=== PATIENT | male | born 1935 | race Caucasian/White ===

== ENCOUNTER 2016-07-09 04:02 | Inpatient (IN) | payer MEDICARE, BC ==
[2016-07-04 13:57] LABS: HEMATOCRIT 44.9 % (40.0-51.0); HEMOGLOBIN 15.2 g/dL (13.6-17.8)
[2016-07-04 14:08] LABS: BUN (BLOOD UREA NITROGEN) 17 MG/DL (6-23); CALCIUM, SERUM 9.1 MG/DL (8.5-10.4); CHLORIDE, SERUM 105 MMOL/L (96-112); CO2 (CARBON DIOXIDE) 27 MMOL/L (24-34); CREATININE 1.12 MG/DL (0.70-1.30); GFR AFRICAN AMERICAN 72 ML/MIN (>=60); GFR NON AFRICAN AMERICAN 62 ML/MIN (>=60); GLUCOSE, SERUM 103 MG/DL (60-99); POTASSIUM, SERUM 4.1 MMOL/L (3.5-5.3); SODIUM, SERUM 140 MMOL/L (135-148)
--- NOTE | ~2016-07-09 | PREOPHP ---
PreOp History and Physical [facility] [address] [place]. [address] NAME: RENÉE GOMEZ : 37 STATUS : ADM IN PAT#: [id number] AGE: 81 ADM/REG DATE : 07/09/16 MR#: [id number] REPORT SERV DATE: 07/09/16 DICTATED BY: UMESH HEADLEY DATE: 07/09/16 REPORT STATUS : Draft TRANSCRIBED BY: MODL DATE: 07/09/16 CHIEF COMPLAINT: Back pain, right hip and leg pain. HISTORY OF PRESENT ILLNESS: This is an 81-year-old male with a significant history of back pain, right hip and leg pain. It has been unresponsive to care. His symptoms are much worse standing or walking, better when sitting. He has had an extensive workup and is found to have neurologic deficit on exam. He is also found to have spinal stenosis at L3-4 which is mostly central canal and lateral recess. There is rather marked spinal stenosis with disk herniation and nerve impingement on the right at L4-5. A complete facetectomy will be required in order to decompress the exiting nerve root at L4. Also, with a complete facetectomy and severe stenosis at L4-5, restabilization will be necessary. This will be done through transforaminal diskectomy, interbody cage insertion, posterolateral interbody fusion, as well as posterior percutaneous instrumentation. At L3-4, since there is no facetectomy and no iatrogenic instability, only a simple decompression will be carried out. Prior to surgery, I have gone over the risks, benefits, alternatives, and expectations that have been completed. The patient and the family understand there are significant risks at his age with the medical problems he has had, everything up to and including paralysis and . They feel the pain is so intense and so severe that he is willing to do anything for any attempted relief. It should also be noted the patient does have grade 1 spondylolisthesis at L4-5, associated with severe stenosis. Today, in the preop holding, the patient was identified. Once again, the patient voiced understanding the risks, willingness to accept those, and requested to proceed. Please also note due to the complexity of surgery and the need to identify correct level of surgery intraoperatively as well as desire to carry out the safest and most precise dissection, we feel intraoperative navigation is mandatory. PAST MEDICAL HISTORY: Includes coronary artery disease and he did have an VT at age 41. He has had cardiac stents. He has hypercholesterolemia, CVA, and TIA. He has had osteoarthritis as well. PAST SURGICAL HISTORY: [place] tooth extraction, cholecystectomy, skin biopsy, cataract extraction, lens implant, and coronary artery bypass graft surgery. CURRENT MEDICATIONS: Amlodipine, Zetia, Neurontin, losartan, primidone, propranolol, simvastatin, and triamcinolone. ALLERGIES: CODEINE AND LATEX. SOCIAL HISTORY: He is . Right-hand dominant. Former smoker. Used about 40 pack- years tobacco. Rarely uses alcohol. FAMILY HISTORY: His father is . Mother also , hypertensive crisis. PHYSICAL EXAMINATION: VITAL SIGNS: 5 feet 11 inches, 213 pounds, BMI is 29.7. PreOp History and Physical [address] [address] NAME: RENÉE GOMEZ : 37 STATUS : ADM IN [facility]#: [id number] AGE: 81 ADM/REG DATE : 07/09/16 MR#: [id number] REPORT SERV DATE: 07/09/16 DICTATED BY: UMESH HEADLEY DATE: 07/09/16 REPORT STATUS : Draft TRANSCRIBED BY: HOMERO DATE: 07/09/16 GENERAL: Alert, cooperative, well oriented. Asked to have assistance to ambulate because the pain is so intractable. HEENT: Pupils are equal and reactive to light. Extraocular muscles are intact. Oral exam is grossly normal. LUNGS: Clear to auscultation. HEART: Rate is regular and rhythmic. ABDOMEN: Soft with good bowel sounds. No peritoneal signs are noted. MUSCULOSKELETAL: The spine itself has no gross deformities. He has no leg length discrepancy. No pelvic obliquely is noted. He has limited range of motion. He cannot heel walk or toe walk. Patella and Achilles reflexes are completely absent. I could not detect true motor strength weakness. I did a straight leg raising sign which caused some pain on the right, but I did not do a femoral nerve stretch test. Toes are downgoing. No ankle clonus is found. No evidence of myelopathy noted. Orthopedically, he has no pain with moving hips, knees, or ankles. There are pulses but they are weak in both lower extremities. Capillary refill is 4 to 4.5 seconds. No abnormal skin lesions are found. No adenopathy palpated. ASSESSMENT AND RECOMMENDATIONS: As listed above. SH/MODL Umesh Headley D.O. / [id number] CC: Umesh Headley D.O.
--- NOTE | ~2016-07-09 | DS ---
Discharge Summary [facility] [address] [place]. [address] NAME: RENÉE GOMEZ : 37 STATUS : DIS IN PAT#: [id number] AGE: 81 ADM/REG DATE : 07/09/16 MR#: [id number] REPORT SERV DATE: 07/20/16 DICTATED BY: UMESH HEADLEY DATE: 07/20/16 REPORT STATUS : Draft TRANSCRIBED BY: MODAbhi DATE: 07/20/16 Data Collection from hospitalization DISCHARGE DIAGNOSES: 1. Severe foraminal spinal stenosis with grade 1 spondylolisthesis at L4-5 on the right. 2. Spinal stenosis right L3-4. 3. Hypertension. 4. History of stroke. 5. Coronary artery disease. 6. History of myocardial infarction. 7. Peripheral vascular disease. 8. History of carotid stenosis. 9. Osteoarthritis. 10.Hypercholesterolemia. CONSULTATIONS: None. PROCEDURES PERFORMED: Microscopic and navigation-assisted surgery; right L4-5 hemilaminectomy, foraminotomy, facetectomy, transforaminal diskectomy, anterior interbody cage insertion, posterior lateral interbody fusion with local bone graft and allograft; posterior percutaneous Voyager instrumentation at L4-5; right L3-4 hemilaminotomy, foraminotomy, and partial facetectomy on 07/09/2016. PATHOLOGY: Spine, lumbar bone, and tissue - fibrocartilage consistent with intervertebral disk, calcium pyrophosphate deposition in disk material, benign bone fragments with degenerative changes. MEDICATIONS: Tylenol 1000 mg every four hours as needed, Norvasc 10 mg at bedtime, aspirin 81 mg twice a day, Plavix 75 mg daily, Zetia 10 mg at bedtime, Dilaudid 4 mg every four hours as needed, Hyzaar one tablet daily, Robaxin 500 mg every eight hours, Mysoline 100 mg twice a day, Inderal LA 120 mg daily, Zocor 40 mg at bedtime, and PreserVision one capsule twice a day. CONDITION AT DISCHARGE: Stable. DISPOSITION: The patient was discharged home to be followed by home health care on a regular diet with activities as instructed. He would follow up with Anais Barber on 07/24/2016. HOSPITAL COURSE: This is an 81-year-old man who has a significant history of back, right hip, and leg pain. This had been unresponsive to care. He has had an extensive workup and was found to have neurologic deficits on exam. He was also found to have spinal stenosis at L3-4, which was mostly central canal and lateral recess. There was rather marked spinal stenosis with disk herniation and nerve impingement on the right at L4-5. Treatment options were discussed and it was elected to proceed with surgical intervention. He was admitted to the hospital at this time for further evaluation and treatment. Upon admission, he was taken to the operating room where he underwent the above-mentioned procedure. He tolerated this well, and there were no complications. On postop day #1, he Discharge Summary [facility] [address] [facility] [address] [facility]. [address] NAME: RENÉE GOMEZ : 37 STATUS : DIS IN PAT#: [id number] AGE: 81 ADM/REG DATE : 07/09/16 MR#: [id number] REPORT SERV DATE: 07/20/16 DICTATED BY: UMESH HEADLEY DATE: 07/20/16 REPORT STATUS : Draft TRANSCRIBED BY: HOMERO DATE: 07/20/16 was doing well. He had no right leg pain. He had normal distal pulses. He was evaluated by Physical Therapy. On postop day #2, he continued to do well. He was transferring okay. A laxative was given. Discharge planning was performed. On 07/12/2016, he was ambulating in the lin. Discharge instructions were given. Due to his improved and stable condition, he was discharged home to be followed by home health care with the above-stated instructions. Information collected by: Aidee Cody I submit the above information as my discharge summary. KITTY/HOMERO Umesh Headley D.O. / [id number] CC: Sally Fermin M.D.
--- NOTE | ~2016-07-09 | OP ---
Record Of Operation [facility] [address] [place]. [address] NAME: RENÉE GOMEZ : 37 STATUS : ADM IN PAT#: [id number] AGE: 81 ADM/REG DATE : 07/09/16 MR#: [id number] REPORT SERV DATE: 07/09/16 DICTATED BY: UMESH HEADLEY DATE: 07/09/16 REPORT STATUS : Draft TRANSCRIBED BY: MODL DATE: 07/09/16 DATE OF PROCEDURE: PREOPERATIVE DIAGNOSES: 1. Severe foraminal spinal stenosis with a grade 1 spondylolisthesis at L4-5 on the right. 2. Spinal stenosis at right L3-4. POSTOPERATIVE DIAGNOSES: 1. Severe foraminal spinal stenosis with a grade 1 spondylolisthesis at L4-5 on the right. 2. Spinal stenosis at right L3-4. PROCEDURES: 1. Microscopic and navigation-assisted surgery. 2. Right L4-5 hemilaminectomy, foraminotomy, facetectomy, transforaminal diskectomy, anterior interbody cage insertion, posterior lateral interbody fusion with local bone graft and allograft. 3. Posterior percutaneous Voyager instrumentation at L4-5. 4. Right L3-4 hemilaminotomy, foraminotomy, partial facetectomy. SURGEON: Umesh Headley D.O. TO[employer] PREVENTION HEALTH EDUCATOR: Willie Forbes. ANESTHESIA: General. BLOOD LOSS: 50 mL. INDICATION FOR SURGERY: Risks were explained. They are listed in the last office note as well as history and physical. See that for detail. DESCRIPTION OF PROCEDURE: Antibiotic prophylaxis was given. Neurophysiology monitoring leads were inserted. The patient was brought into the operative suite and general anesthetic including endotracheal intubation was administered. Hussein catheter was inserted with sterile technique. The patient was placed prone on a Marky spine frame. Bony prominences were carefully padded. Thoracolumbar spine scrubbed with Hibiclens solution. DuraPrep was painted. Sterile drapes applied. A small stab wound was carried out over the left posterior superior iliac spine. A percutaneous pin with navigational frame attached was inserted in the PSIS. Intraoperative CT scan with the O-arm was obtained. CT information used to register the navigational system. With navigational assistance, I identified the L3-4 and L4-5 level. A small 2 cm skin incision was carried out in the midline at L3-4. A blunt navigated probe placed through the fascia and muscle and docked over the interlaminar space. Muscle dilators were inserted followed by placement of a tubular retractor attached to an arm mount on the table. The Record Of Operation [facility] [address] [place]. [address] NAME: RENÉE GOMEZ : 37 STATUS : ADM IN PAT#: [id number] AGE: 81 ADM/REG DATE : 07/09/16 MR#: [id number] REPORT SERV DATE: 07/09/16 DICTATED BY: UMESH HEADLEY DATE: 07/09/16 REPORT STATUS : Draft TRANSCRIBED BY: HOMERO DATE: 07/09/16 microscope was sterilely draped and used throughout the remainder of the procedure. With navigational assistance, I identified the amount of lamina of L3 needed to remove in order to reach the cephalad boundary of the disk space and the insertion of the ligamentum flavum. I removed 60% to 70% ligamentum of the lamina of L3, 25% of medial facet joint of L3-4, and the lateral ligamentum flavum was elevated and removed with Kerrison rongeurs. This nicely decompressed the lateral recess and the central canal and appeared very nicely. The disk space was inspected. No herniations were found. The wound was irrigated. The retractor was removed. Next, I identified L4-5, and on the right side, just lateral to the facet joint, a 2.5 cm skin incision was carried out. A blunt navigated probe placed through the fascia and muscle and docked over the facet joint. Muscle dilators were inserted followed by placement of a tubular retractor attached to an arm mount on the table. The microscope was sterilely draped and used throughout the remainder of the procedure as well. With the navigational assistance, once again, I identified the top of the pedicle of L5 and the inferior pedicle of L4. I then worked from [id number] removed and using a combination of a cutting horace, a john horace, and 2 as well as 3 mm Kerrison rongeurs, I removed the superior articular process of L5 down to the top of the pedicle. I removed the inferior articular process of L4, the lamina of L4, and the pars interarticularis of L4. The ligamentum flavum was markedly hypertrophied and it was removed, and this decompressed the central canal as well as the lateral recess. The foramen was extremely stenotic secondary to a combination of facet hypertrophy and ligamentum flavum hypertrophy. A transforaminal diskectomy was carried out with curettes and rongeurs. Intradiscal trial was carried out after the diskectomy was completed including removing the endplate cartilage. The wounds were irrigated. Interbody space was then filled with combination of local bone graft allograft and a small dosage of bone protein. The cage was then inserted through the transforaminal approach into the midline against the anterior longitudinal ligament. Posterior lateral interbody fusion was then completed with additional local bone graft. The retractor was then removed. A 2.5 cm skin incision was carried out on the left side to match that on the right. Through the previous in two incisions, percutaneous Voyager pedicle tap and screw senior principal architect were used to tap the pedicles of L4 and [address] poly[address] Voyager screws with screw extenders. The rods were placed through the top portion of the screw mds rn, reduced into the tulip of the pedicle screw. The set screws were inserted and tightened with a torque wrench providing rigid stability bilaterally. The screw extenders were removed. Intraoperative CT scan with O-arm repeated showing good position of all implants. The fascial opening was closed with a single interrupted #1 Vicryl suture. The subcutaneous tissue was closed with 2-0 Vicryl sutures and 2-0 vertical mattress nylon suture used for skin closure. Sterile dressing was applied. The patient returned to supine position, awakened, extubated, and taken to recovery room in satisfactory condition having tolerated the procedure well. Record Of Operation [facility] [address] [facility] [place] [place]. [address] NAME: RENÉE GOMEZ : 37 STATUS : ADM IN PAT#: [id number] AGE: 81 ADM/REG DATE : 07/09/16 MR#: [id number] REPORT SERV DATE: 07/09/16 DICTATED BY: UMESH HEADLEY DATE: 07/09/16 REPORT STATUS : Draft TRANSCRIBED BY: HOMERO DATE: 07/09/16 JOHN/HOMERO Umesh Headley D.O. / [id number] CC: Umesh Headley D.O.
[~2016-07-09 04:02] MED LIST: ACET500CAP PO; ASAB PO; DIOVAN HC1 PO; HYZAAR1 TAB PO; INDE120LA PO; NORV10 PO; PLAVIX PO; PRESERVISION A1 EAC1 PO; PRIM50B PO; VYTORIN 10/40 T1 TAB PO; ZETIA PO; ZOCOR40 PO
[2016-07-09 10:37] LABS: BASOPHILS 0.5 %; BASOPHILS ABSOLUTE 0.05 10/3/uL (0.0-0.16); EOSINOPHILS 2.6 %; EOSINOPHILS ABSOLUTE 0.27 10/3/uL (0.0-0.53); HEMATOCRIT 41.7 % (40.0-51.0); HEMOGLOBIN 14.2 g/dL (13.6-17.8); IMMATURE GRANULOCYTES 0.6 %; IMMATURE GRANULOCYTES ABSOLUTE 0.06 10/3/uL (0.0-0.11); LYMPHOCYTES 15.7 %; LYMPHOCYTES ABSOLUTE 1.65 10/3/uL (0.67-4.30); MEAN CORPUS HGB CONC 34.1 g/dL (32.0-36.0); MEAN CORPUSCULAR VOLUME 88.2 fL (80-100); MEAN PLATELET VOLUME 10.6 fL (9.2-13.0); MONOCYTES 2.8 %; MONOCYTES ABSOLUTE 0.29 10/3/uL (0.21-1.20); NEUTROPHILS 77.8 %; NEUTROPHILS ABSOLUTE 8.21 10/3/uL (2.02-8.40); PLATELET COUNT 78 10/3/uL (150-400); RBC DISTRIBUTION WIDTH 13.8 % (12.0-16.0); RED CELL COUNT 4.73 10/6/uL (4.7-6.1); WHITE BLOOD CELLS 10.5 10/3/uL (4.5-10.5)
[2016-07-09 10:40] LABS: MANUAL DIFF NO %
[2016-07-09 10:52] LABS: BUN (BLOOD UREA NITROGEN) 16 MG/DL (6-23); CALCIUM, SERUM 8.7 MG/DL (8.5-10.4); CHLORIDE, SERUM 104 MMOL/L (96-112); CO2 (CARBON DIOXIDE) 26 MMOL/L (24-34); CREATININE 1.18 MG/DL (0.70-1.30); GFR AFRICAN AMERICAN 67 ML/MIN (>=60); GFR NON AFRICAN AMERICAN 58 ML/MIN (>=60); GLUCOSE, SERUM 163 MG/DL (60-99); POTASSIUM, SERUM 4.6 MMOL/L (3.5-5.3); SODIUM, SERUM 137 MMOL/L (135-148)
[2016-07-09 10:56] LABS: PLATELET ESTIMATE DEC (ADEQUATE)
[2016-07-09 10:57] LABS: RBC MORPHOLOGY NORM (NORMAL)
[2016-07-10 04:56] LABS: HEMATOCRIT 39.9 % (40.0-51.0); HEMOGLOBIN 13.6 g/dL (13.6-17.8); MEAN CORPUS HGB CONC 34.1 g/dL (32.0-36.0); MEAN CORPUSCULAR HEMOGLOB 30.3 pg (26.0-34.0); MEAN CORPUSCULAR VOLUME 88.9 fL (80-100); MEAN PLATELET VOLUME 11.4 fL (9.2-13.0); RBC DISTRIBUTION WIDTH 13.6 % (12.0-16.0); RED CELL COUNT 4.49 10/6/uL (4.7-6.1)
[2016-07-10 04:59] LABS: MANUAL DIFF YES %; PLATELET COUNT 107 10/3/uL (150-400); WHITE BLOOD CELLS 16.7 10/3/uL (4.5-10.5)
[2016-07-10 05:09] LABS: BUN (BLOOD UREA NITROGEN) 13 MG/DL (6-23); CALCIUM, SERUM 8.8 MG/DL (8.5-10.4); CHLORIDE, SERUM 97 MMOL/L (96-112); CREATININE 0.91 MG/DL (0.70-1.30); GFR AFRICAN AMERICAN 92 ML/MIN (>=60); GFR NON AFRICAN AMERICAN 79 ML/MIN (>=60); GLUCOSE, SERUM 139 MG/DL (60-99); POTASSIUM, SERUM 4.3 MMOL/L (3.5-5.3); SODIUM, SERUM 133 MMOL/L (135-148)
[2016-07-10 05:10] LABS: CO2 (CARBON DIOXIDE) 31 MMOL/L (24-34)
[2016-07-10 05:24] LABS: BAND NEUTROPHILS 7 %; LYMPHOCYTES 11 %; LYMPHOCYTES ABSOLUTE (CALC) 1.84 10/3/uL (0.67-4.30); MONOCYTES 10 %; MONOCYTES ABSOLUTE (CALC) 1.67 10/3/uL (0.21-1.20); NEUTROPHILS ABSOLUTE (CALC) 13.19 10/3/uL (2.02-8.40); PLATELET ESTIMATE SLT DEC (ADEQUATE); SEGMENTED NEUTROPHIL (0) 72 %; TOTAL NUCLEATED CELLS 100
[2016-07-10 05:25] LABS: RBC MORPHOLOGY NORM (NORMAL)
[2016-07-12 04:35] LABS: BASOPHILS 0.1 %; BASOPHILS ABSOLUTE 0.02 10/3/uL (0.0-0.16); EOSINOPHILS 0.4 %; EOSINOPHILS ABSOLUTE 0.06 10/3/uL (0.0-0.53); IMMATURE GRANULOCYTES 0.4 %; IMMATURE GRANULOCYTES ABSOLUTE 0.06 10/3/uL (0.0-0.11); LYMPHOCYTES 10.8 %; LYMPHOCYTES ABSOLUTE 1.84 10/3/uL (0.67-4.30); MEAN CORPUS HGB CONC 34.2 g/dL (32.0-36.0); MEAN CORPUSCULAR HEMOGLOB 29.9 pg (26.0-34.0); MEAN CORPUSCULAR VOLUME 87.5 fL (80-100); MEAN PLATELET VOLUME 10.9 fL (9.2-13.0); MONOCYTES 14.2 %; MONOCYTES ABSOLUTE 2.42 10/3/uL (0.21-1.20); NEUTROPHILS 74.1 %; NEUTROPHILS ABSOLUTE 12.61 10/3/uL (2.02-8.40); RBC DISTRIBUTION WIDTH 13.8 % (12.0-16.0); RED CELL COUNT 3.68 10/6/uL (4.7-6.1)
[2016-07-12 04:37] LABS: HEMATOCRIT 32.2 % (40.0-51.0); MANUAL DIFF NO %; PLATELET COUNT 140 10/3/uL (150-400)
[2016-07-12 04:40] LABS: CHLORIDE, SERUM 95 MMOL/L (96-112); CO2 (CARBON DIOXIDE) 31 MMOL/L (24-34); CREATININE 0.87 MG/DL (0.70-1.30); GFR AFRICAN AMERICAN 94 ML/MIN (>=60); GFR NON AFRICAN AMERICAN 82 ML/MIN (>=60); GLUCOSE, SERUM 133 MG/DL (60-99); SODIUM, SERUM 132 MMOL/L (135-148)
[2016-07-12 04:41] LABS: BUN (BLOOD UREA NITROGEN) 22 MG/DL (6-23); POTASSIUM, SERUM 3.3 MMOL/L (3.5-5.3)
[2016-07-12] MEDS ORDERED: DIL4TAB PO (09:59)
[2016-07-12] MEDS ORDERED: METHOC500B PO (10:00)
== END 2016-07-12 13:29 | disposition home health service (06) | DRG 460 ==
LOC: SDC/OF 04:02 → PACU 10:01 → 3SO 11:50
PROVIDERS: Orthopaedic Surgery Orthopaedic Surgery of the Spine
PROC: 0SG00AJ Fusion of Lumbar Vertebral Joint with Interbody Fusion Device, Posterior Approach, Anterior Column, Open Approach (ICD-10-PCS; principal; 2016-07-09 05:45)
PROC: 0ST20ZZ Resection of Lumbar Vertebral Disc, Open Approach (ICD-10-PCS; 2016-07-09 05:45)
PROC: 0SG0071 Fusion of Lumbar Vertebral Joint with Autologous Tissue Substitute, Posterior Approach, Posterior Column, Open Approach (ICD-10-PCS; 2016-07-09 05:45)
PROC: 4A11X4G Monitoring of Peripheral Nervous Electrical Activity, Intraoperative, External Approach (ICD-10-PCS; 2016-07-09 05:45)
DX: M51.36 Other intervertebral disc degeneration, lumbar region (principal)
CPT/HCPCS: 36415; 80048; 82962; 85014; 85018; 85025; 86850; 86900; 86901; 87641; 88304; 88311; 93005; 97116-GP; 97161-GP; 97530-GP; A9270-GY; C1713; C1768; G8978-CL-GP; G8979-CJ-GP; J0690; J1170; J1644; J2250; J2270; J2405; J2710; J3010; J3370